=== PATIENT | male | born 1965 | race African-American/Black ===

== ENCOUNTER 2019-08-16 17:06 | Emergency (ER) | payer OTHER ==
[~2019-08-16] VITALS: Ht 175.3 cm; Wt 78.0 kg
[2019-08-16] MEDS ORDERED: IBUPROFEN 800MG TABLET PO ONE (19:15)
[2019-08-16 20:48] VITALS: BP 157/95
== END 2019-08-16 20:49 | disposition home or self-care (01) ==
LOC: ER 17:06
DX: S09.8XXA Other specified injuries of head, initial encounter (principal); M54.2 Cervicalgia; M54.5 Low back pain; M25.512 Pain in left shoulder; M25.511 Pain in right shoulder; I10 Essential (primary) hypertension; V43.52XA Car driver injured in collision with other type car in traffic accident, initial encounter; Y93.89 Activity, other specified; Y92.488 Other paved roadways as the place of occurrence of the external cause
CPT/HCPCS: 72100; 73030; 99285